=== PATIENT | male | born 1970 | race Caucasian/White ===

== ENCOUNTER 2024-09-05 02:50 | Emergency (ER) | payer MEDICAID ==
[~2024-09-05] VITALS: Ht 180.3 cm; Wt 104.3 kg
[2024-09-05] MEDS ORDERED: OXYMETAZOLINE HCL NASAL SPRAY 30 ML BOTTLE NS ONE (04:09)
[2024-09-05 04:13] LABS: BASOPHILS % (AUTO) 0.6 % (0.0-2.0); EOSINOPHILS # (AUTO) 0.3 K/uL (0.0-0.7); EOSINOPHILS % (AUTO) 3.7 % (0.0-6.0); HEMATOCRIT 36 % (39-51); HEMOGLOBIN 12.2 g/dL (13.5-17.5); LYMPHOCYTES # (AUTO) 1.8 K/uL (0.8-4.8); LYMPHOCYTES % (AUTO) 23.8 % (20.0-44.0); MEAN CORPUSCULAR HEMOGLOBIN 31 PG (26.0-33.0); MEAN CORPUSCULAR HGB CONC 34 g/dl (31.0-36.0); MEAN CORPUSCULAR VOLUME 90 fL (80-96); MONOCYTES # (AUTO) 0.6 K/uL (0.1-1.30); MONOCYTES % (AUTO) 8.3 % (2.0-12.0); NEUTROPHILS # (AUTO) 4.7 K/uL (1.8-8.9); NEUTROPHILS % (AUTO) 63.6 % (43.0-81.0); PLATELET COUNT (AUTO) 382 K/uL (150-450); RED CELL DISTRIBUTION WIDTH 13.8 % (11.5-15.0); WHITE BLOOD COUNT (AUTO) 7.5 K/uL (4.3-11.0)
[2024-09-05] MEDS: OXYMETAZOLINE HCL NASAL SPRAY 30 ML BOTTLE NS ONE (04:13)
[2024-09-05] MEDS ORDERED: PHENYLEPHRINE 10 MG/ML VIAL ONE ×2 (04:14→06:48)
[2024-09-05 04:25] LABS: CALCIUM, SERUM 8.5 mg/dL (8.5-10.1); CREATININE 1.1 mg/dL (0.6-1.3); POTASSIUM 3.3 mmol/L (3.5-5.1)
[2024-09-05 04:31] LABS: ALBUMIN 3.1 g/dL (3.4-5.0); BILIRUBIN,TOTAL 0.3 mg/dL (0.2-1.0); TOTAL PROTEIN, SERUM 7.2 g/dL (6.4-8.2)
[2024-09-05] MEDS ORDERED: HYDROMORPHONE 1 MG/1 ML DISP.SYRIN ONE (04:33)
[2024-09-05] MEDS ORDERED: LORAZEPAM INJ 2 MG/ML VIAL ONE (04:34)
[2024-09-05] MEDS ORDERED: ONDANSETRON 4 MG TAB.RAPDIS ONE (04:34)
[2024-09-05] MEDS: HYDROMORPHONE 1 MG/1 ML DISP.SYRIN IM ONE (04:42)
[2024-09-05] MEDS: ONDANSETRON 4 MG TAB.RAPDIS PO ONE (04:42)
[2024-09-05] MEDS: LORAZEPAM INJ 2 MG/ML VIAL IM ONE (04:42)
[2024-09-05] MEDS: PHENYLEPHRINE 10 MG/ML VIAL IV ONE (04:43)
[2024-09-05 04:45] VITALS: TEMP 98
[2024-09-05] MEDS: PSEUDOEPHEDRINE HCL 30 MG TABLET PO ONE (06:30)
[2024-09-05] MEDS ORDERED: LIDOCAINE 1% INJ 50 ML MDV IJ ONE (06:48)
[2024-09-05] MEDS ORDERED: DIAZEPAM 5 MG TABLET ONE (07:52)
[2024-09-05] MEDS: DIAZEPAM 5 MG TABLET PO ONE (07:57)
[2024-09-05] MEDS ORDERED: POTASSIUM CL. PREMIX PERIPHER. 0 ML ONE (08:31)
[2024-09-05] MEDS: POTASSIUM CL. PREMIX PERIPHER. 50 ML IV SCH (09:01)
[2024-09-05] MEDS ORDERED: POTASSIUM CHLORIDE 20 MEQ TAB.PRT.SR PO ONE (10:29)
[2024-09-05] MEDS: POTASSIUM CHLORIDE 20 MEQ TAB.PRT.SR PO ONE (10:32)
[2024-09-05 10:33] VITALS: BP 136/97; O2SAT 98
== END 2024-09-05 10:34 | disposition home or self-care (01) ==
LOC: ER 02:57
DX: N48.30 Priapism, unspecified (principal); E78.00 Pure hypercholesterolemia, unspecified
CPT/HCPCS: 36415; 54235; 80053; 85025; 96372; 99284; A4223; J1171; J2060; J3490; J7050; Q0162; J3480

== ENCOUNTER 2024-09-06 01:03 | Emergency (ER) | payer MEDICAID ==
[~2024-09-06] VITALS: Ht 180.3 cm; Wt 104.3 kg
[2024-09-06 02:32] LABS: BASOPHILS % (AUTO) 0.4 % (0.0-2.0); EOSINOPHILS # (AUTO) 0.2 K/uL (0.0-0.7); EOSINOPHILS % (AUTO) 2.6 % (0.0-6.0); HEMATOCRIT 35 % (39-51); HEMOGLOBIN 11.6 g/dL (13.5-17.5); LYMPHOCYTES # (AUTO) 1.3 K/uL (0.8-4.8); LYMPHOCYTES % (AUTO) 15.5 % (20.0-44.0); MEAN CORPUSCULAR HEMOGLOBIN 30 PG (26.0-33.0); MEAN CORPUSCULAR HGB CONC 34 g/dl (31.0-36.0); MEAN CORPUSCULAR VOLUME 90 fL (80-96); MONOCYTES # (AUTO) 0.7 K/uL (0.1-1.30); MONOCYTES % (AUTO) 8.5 % (2.0-12.0); NEUTROPHILS # (AUTO) 6.3 K/uL (1.8-8.9); PLATELET COUNT (AUTO) 386 K/uL (150-450); RED BLOOD CELL COUNT(AUTO) 3.85 MIL/uL (4.5-6.0); RED CELL DISTRIBUTION WIDTH 13.7 % (11.5-15.0); WHITE BLOOD COUNT (AUTO) 8.6 K/uL (4.3-11.0)
[2024-09-06 02:46] LABS: ALBUMIN 2.9 g/dL (3.4-5.0); BILIRUBIN,TOTAL 0.2 mg/dL (0.2-1.0); CALCIUM, SERUM 8.5 mg/dL (8.5-10.1); CREATININE 1.2 mg/dL (0.6-1.3); POTASSIUM 4.3 mmol/L (3.5-5.1); TOTAL PROTEIN, SERUM 6.9 g/dL (6.4-8.2)
[2024-09-06] MEDS: PHENYLEPHRINE 10 MG/ML VIAL IV ONE (03:00)
[2024-09-06] MEDS: HYDROMORPHONE 1 MG/1 ML DISP.SYRIN IV ONE (03:00)
[2024-09-06] MEDS: ONDANSETRON HCL/PF - ER 4 MG/2 ML VIAL IV ONE (03:00)
[2024-09-06] MEDS: IV NS 0.9% 1,000 ML IV ONE (03:00)
[2024-09-06] MEDS: CEFAZOLIN 1 GM in IV D5W 50 ML IV ONE (03:00)
[2024-09-06 03:01] VITALS: BP 118/84; TEMP 97.9; O2SAT 98
== END 2024-09-06 03:02 | disposition left against medical advice (07) ==
LOC: ER 01:04
DX: N48.30 Priapism, unspecified (principal); E78.5 Hyperlipidemia, unspecified; I10 Essential (primary) hypertension
CPT/HCPCS: 99283; 85025; 83605; 36415; 80053; J0690; J2405; J7060